=== PATIENT | female | born 1960 | race Two or more races ===

== ENCOUNTER 2016-08-16 19:48 | Inpatient (IN) | payer OTHER ==
[2016-08-16] MEDS ORDERED: LACTATED RINGERS 1,000 ML ONE (21:06)
[2016-08-16] MEDS ORDERED: MORPHINE SULFATE 4 MG/ML SYRINGE ONE (21:07)
[2016-08-16 21:53] LABS: ABSOLUTE NEUTROPHIL COUNT 8.5 K/mm3 (1.8-7.7); BASO % 0.4 % (0.2-1.0); EOS % 0.4 % (0.9-2.9); HEMATOCRIT 41.6 % (37.0-47.0); HEMOGLOBIN 13.5 gm/l (12.0-16.0); IMM NEUT% 0.4 % (0-1); LYMPH # 1.3 (1.0-4.8); MEAN CELL VOLUME 88.1 fl (81.0-99.0); MEAN CORPUSCULAR HEMOGLOBIN 28.6 pg (27.0-31.0); MEAN CORPUSCULAR HGB CONC 32.5 g/dl (33.0-37.0); MEAN PLATELET VOLUME 10.5 fl (7.4-10.4); NEUT % 77.8 % (43-75); PLATELET COUNT 271 K/mm3 (130-400); RED CELL DISTRIBUTION WIDTH 11.9 % (11.5-14.5)
[2016-08-16 22:11] LABS: CALCIUM 9.8 mg/dL (8.6-10.3)
[2016-08-16 23:04] VITALS: BMI 22.4
[2016-08-16] MEDS ORDERED: ONDANSETRON 4 MG/2ML 2 ML VIAL IV PRN (23:21)
[2016-08-16] MEDS ORDERED: MENTHOL/CETYLPYRD 1 EACH LOZENGE PO PRN (23:22)
[2016-08-16] MEDS ORDERED: BISACODYL 10 MG SUP PR PRN (23:22)
[2016-08-16] MEDS ORDERED: SODIUM CHLORIDE 0.9% 100 ML IV PRN (23:22)
[2016-08-16] MEDS ORDERED: BLISTEX LIPSTICK 1 EACH TP PRN (23:22)
[2016-08-16] MEDS: HYDROMORPHONE HCL 1 MG/ML SYRINGE IV PRN (23:32)
[2016-08-17] MEDS ORDERED: PUMP TUBING ONE (00:26)
[2016-08-17] MEDS: SODIUM CHLORIDE 0.9% 1,000 ML IV SCH ×2 (00:32→15:51)
[2016-08-17] MEDS: HYDROMORPHONE HCL 1 MG/ML SYRINGE IV PRN (00:35)
[2016-08-17 01:10] LABS: URINE BILIRUBIN NEGATIVE (NEGATIVE); URINE BLOOD NEGATIVE (NEGATIVE); URINE GLUCOSE (UA) NEGATIVE (NEGATIVE); URINE LEUKOCYTE ESTERASE 2+ (NEGATIVE); URINE NITRITE NEGATIVE (NEGATIVE); URINE PROTEIN NEGATIVE (NEGATIVE); URINE UROBILINOGEN NORMAL (0-1 mg/dl)
[2016-08-17 01:15] LABS: URINE APPEARANCE HAZY; URINE COLOR STRAW
[2016-08-17 01:16] LABS: URINE BACTERIA 3+; URINE EPITHELIAL CELLS MANY /hpf; URINE WBC >100 /hpf
[2016-08-17 06:10] LABS: HEMATOCRIT 35.7 % (37.0-47.0); HEMOGLOBIN 11.4 gm/l (12.0-16.0); MEAN CELL VOLUME 90.2 fl (81.0-99.0); MEAN CORPUSCULAR HEMOGLOBIN 28.8 pg (27.0-31.0); MEAN CORPUSCULAR HGB CONC 31.9 g/dl (33.0-37.0); RED CELL DISTRIBUTION WIDTH 12.1 % (11.5-14.5)
[2016-08-17 06:29] LABS: ALB/GLOB RATIO 1.1 (>1.0); ALBUMIN 3.3 gm/dL (3.5-5.7)
--- NOTE | 2016-08-17 07:42 | HP ---
Jeremy Arzate ADMIT DATE: 08/16/2016 CHIEF COMPLAINT: Hip pain. HISTORY OF PRESENT ILLNESS: Jeremy is a 56-year-old Greek speaking woman. She lives at home with her two sons and [id number]. She fell about 5 days ago while up walking around at night. Her family heard her fall and found her on the ground. She was conscious. She had not injured herself other than her hip. She refused to come to the hospital and so for the last few days they have been literally caring her around whenever she needs to get anywhere as she has been unable to ambulate. They finally brought her to the emergency room this evening. Work up revealed a right femoral neck hip fracture with a negative workup otherwise. She was admitted to the hospitalist service with plans for orthopedic consult. REVIEW OF SYSTEMS: No headache. No visual symptoms. No difficulty swallowing. No chest pain or shortness of breath. No heart palpitations. No nausea, vomiting, or diarrhea. She has had some constipation lately, but no other concerns. No fevers, no chills. PAST MEDICAL HISTORY: 1. Cerebrovascular accident 01/27, she was treated at [facility]. She was left with difficulties with speech, right sided hemiparesis. She was able to ambulate with a walker. She does not have difficulty with eating or drinking. 2. Hypertension. 3. Hyperlipidemia. PAST SURGICAL HISTORY: 1. "Women part" surgery greater than 10 years ago when she was in [place]. It sounds like she may have had an ovarian cyst removed. 2. L4-L5 fusion performed just last month 06/17/2016 at [facility]. ALLERGIES: No known drug allergies. CURRENT MEDICATIONS: 1. Lisinopril 10 mg by mouth daily. 2. Fenofibrate unknown dose. 3. Oxycodone as needed over the last couple of days, this is a left over prescription from her back surgery, she does not usually take it. 4. Cyclobenzaprine 10 mg by mouth three times daily as needed, again left over from her back surgery, just been using it in the last couple of days. SOCIAL HISTORY: She lives with her son and his , a second younger son, as well as grandchildren. No alcohol, tobacco, or drug use. She just moved here from [facility] to live with her family back in 2008. FAMILY HISTORY: Noncontributory. OBJECTIVE: VITAL SIGNS: Stable. She is afebrile. GENERAL: This is a well-developed, well-nourished female. She is alert and calm. She does have an obvious right sided facial droop and slurred speech. She is in no distress otherwise. HEENT: Benign. Tympanic membranes clear. Oropharynx moist. NECK: Supple. LUNGS: Clear. HEART: Regular. ABDOMEN: Soft. EXTREMITIES: Right lower extremity shortened and externally rotated. She is neurovascularly intact otherwise. There is no edema. LABORATORY: CBC with a white count of 10.9, hemoglobin 13.5, hematocrit 31.6, platelets 271. Chemistry panel, sodium 133, potassium 4.0, chloride 98, carbon dioxide 27, BUN 15, creatinine 0.8, glucose of 122. DIAGNOSTICS: EKG shows normal sinus rhythm. No acute ST or T-wave abnormalities. Chest x-ray is rotated, but it appears to be normal, I am awaiting official radiology read. Pelvis x-ray's do show femoral neck fracture on the right. ASSESSMENT: 1. Right femoral neck fracture secondary to ground level fall. 2. Late effect of a cerebrovascular accident including dysarthria and right sided hemiparesis. 3. Hypertension. 4. Hyperlipidemia. PLAN: She is admitted to the floor. We will treat her supportive tonight with intravenous fluid hydration and intravenous medications for pain and nausea as needed. In the morning we will get orthopedic consult. I am going to keep her nothing by mouth after midnight as I anticipate she may be able to go to surgery tomorrow. Deep venous thrombosis prophylaxis is not indicated given potential for surgery in the morning though we will initiate in the postoperative period. Further care as dictated by clinical course. JOB: [id number]
--- NOTE | 2016-08-17 08:32 | RAD ---
RIGHT HIP AND AP PELVIS SERIES HISTORY: Status post fall with right hip pain. Frontal view of the pelvis with frontal and frog-leg lateral views of the right hip. PELVIC RING: Grossly intact. HIP ALIGNMENT: Grossly unremarkable. HIP JOINT SPACES: Preserved. FRACTURE: Subcapital fracture of the right proximal femur with notable varus angulation and elevation of the humeral shaft. POSTSURGICAL CHANGE: Evidence of prior L4-5 fusion. IMPRESSION: Subcapital fracture of the right proximal femur with moderate varus angulation.
--- NOTE | 2016-08-17 08:33 | RAD ---
PORTABLE CHEST RADIOGRAPH HISTORY: Right hip fracture. Frontal portable chest radiograph dated 08/16/2016. COMPARISON: None. FINDINGS: LUNG VOLUMES: Diminished. FOCAL AIRSPACE OPACITY: No gross airspace consolidation. PLEURAL EFFUSION: None. CARDIOMEDIASTINAL SILHOUETTE: Nonenlarged. Upper mediastinal width may be exaggerated by low lung volumes. PNEUMOTHORAX: None identified. OSSEOUS STRUCTURES: No grossly destructive lesions. IMPRESSION: No acute cardiopulmonary process noted. Hypoventilatory study.
--- NOTE | 2016-08-17 08:37 | CT ---
HEAD CT WITHOUT CONTRAST HISTORY: Status post fall. No intravenous contrast administered. Contiguous axial images acquired from skull base to vertex. COMPARISON:None. BRAIN VOLUME: Mild diffuse volume loss. More focal gliosis and malacic change of the frontal lobes suggesting prior infarcts of the frontal lobes and thalami. VENTRICULAR SIZE:No gross ventriculomegaly. FOCAL MASS EFFECT:None. ACUTE INTRACRANIAL HEMORRHAGE:None. CALVARIUM:Grossly intact. VISIBLE PARANASAL SINUSES AND MASTOID AIR CELLS:Grossly clear. ORBITS: Evidence of prior to surgery. IMPRESSION: No gross mass effect, depressed calvarial fracture, or acute intracranial hemorrhage. Evidence of multiple remote infarcts. Preliminary report relayed to the Emergency Medicine medical service by Dr. Hutton on 08/16/2016 at 2146 hours.
--- NOTE | 2016-08-17 08:39 | RAD ---
RIGHT FEMUR 2 VIEWS HISTORY: Status post fall. COMPARISONS: None. TECHNIQUE: Frontal and crosstable lateral views of the right femur. Lateral view limited by obliquity. ALIGNMENT: Grossly unremarkable. FRACTURE: Subcapital fracture of the right femur with varus angulation. RIGHT KNEE: Minor degenerative osteophyte formation. SOFT TISSUES: Grossly unremarkable. RADIOOPAQUE FOREIGN BODY: None. IMPRESSION: Subcapital fracture of the right proximal femur, please refer to dedicated hip series.
--- NOTE | 2016-08-17 08:43 | CT ---
CERVICAL SPINE CT WITHOUT CONTRAST HISTORY: Status post fall with neck pain. No intravenous contrast administered contiguous axial images acquired from the posterior fossa to the T3 level. FINDINGS ALIGNMENT: Subtle anterolisthesis at C3-4. COMPRESSION DEFORMITY: None. DISC SPACES: Early degrees of narrowing at C3-4-5 levels. FRACTURE: No displaced fracture. DEGENERATIVE CHANGE: Prominent asymmetric degeneration of facet joints at the left C2-3 and C3-4 levels, findings suggesting prominent subchondral cyst at left-sided posterior elements of C3. Small central disc protrusions at the C4 and C4-5 levels.. FORAMINAL NARROWING: Moderate left foraminal narrowing at the C3-4 level. PARASPINAL SOFT TISSUES: Airway patent. No gross mass effect. LUNG APICES: Grossly unremarkable within field of view. SKULL BASE: Incidental note of high riding left jugular bulb. IMPRESSION: No displaced cervical spine fracture. Focal degeneration of left-sided facet joints at C2-3 and C3-4 level. Preliminary report relayed to the Emergency Medicine medical service by Dr. Hutton on 08/16/2016 at 2146 hours.
[2016-08-17] MEDS ORDERED: SODIUM CHLORIDE 0.9% 500 ML IV SCH (09:15)
[2016-08-17] MEDS ORDERED: POVIDONE-IODINE 5% OPHTH SOLN 600 GTTS/BOT SOLN.DROP ONE (12:45)
[2016-08-17] MEDS ORDERED: LACTATED RINGERS 1,000 ML ONE (12:45)
[2016-08-17] MEDS ORDERED: PROPOFOL 20 ML IV ONE (12:59)
--- NOTE | 2016-08-17 13:51 | PDOC43 ---
- Subjective Chief Complaint: Hip fx Did OK overnight. No new c/o's. Subjective: Reports Pain Tolerable, Denies Bowel Movement, Denies Shortness of Breath, Denies Cough, Denies Chest Pain, Denies Abdominal Pain, Denies Nausea, Denies Vomiting, Denies Fever, Denies Chills - Objective Vital Signs Temperature 97.9 F 08/17/16 07:42 Pulse Rate 87 08/17/16 07:42 Respiratory Rate 16 08/17/16 07:42 Blood Pressure 83/53 08/17/16 07:42 O2 Saturation by Pulse Oximetry 97 08/17/16 07:42 Oxygen Delivery Method Nasal Cannula Oxygen Flow Rate 2 Intake and Output 08/16/16 08/17/16 08/18/16 06:59 06:59 06:59 Intake Total 1549 Output Total 675 350 Balance 874 -350 General: Alert, Cooperative, No Acute Distress HEENT: Atraumatic Lungs: Clear to Auscultation Bilaterally Cardiovascular: Regular Rate and Rhythm Abdomen: Soft, Normal Bowel Sounds, Non-Distended, No Tenderness Extremities: Normal Cap Refill, Normal Pulses, No Edema Laboratory 08/17/16 05:30 08/17/16 05:30 Current Medications: Current meds reviewed in EMR. - Problems: Assessment/Plan (1) Hip fracture Qualifiers: Fracture type: closed Laterality: right Status: AcuteAssessment/Plan : R Hip fx due to GLF 4 days FALL INTERN. Plan to OR this afternoon. (2) Late effects of CVA (cerebrovascular accident) Status: ChronicAssessment/Plan: With R hemiparesis and dysarthria. Ambulates with walker as baseline. Will complicate surgical recovery. (3) HTN (hypertension) Qualifiers: Hypertension type: essential hypertension Qualifier Code: (I10) Essential (primary) hypertension Status: ChronicAssessment/Plan: Stable. Resume usual meds post-op. (4) Hyperlipidemia Qualifiers: Hyperlipidemia type: unspecified Qualifier Code: (E78.5) Hyperlipidemia , unspecified Status: ChronicAssessment/Plan: Stable. Need to clarify usual dose of fenofibrate. VTE Prophylaxis: Initiate post-op as per ortho. Disposition: Unknown.
--- NOTE | 2016-08-17 14:48 | HP ---
PRIMO ANDREW : 1960 [id number] DATE OF ADMISSION: 08/17/16 CHIEF COMPLAINT: Right hip pain/deformity. HISTORY OF PRESENT ILLNESS: This is a 56-year-old, Cuban speaking only female who has a history of recent cerebral vascular accident/stroke rendering her right hemiparetic, who suffered a ground level fall in her home approximately 4 days ago. She did not seek medical care at that time however, over the course of a few days her family members recognized that she had increasing amounts of pain and inability to mobilize. She was taken to a local Urgent Care in [place] where she was thought to have had spasms as a result of her fall. She did not have radiographs at that time. She was sent home with symptomatic management only. Within days continued pain and lack of improvement, persistent issues, and patient's family decided to bring the patient to the local ED here in [place]. The patient was evaluated in the ED by the ED providers as well as our internal medicine doctors after radiographs demonstrated a right femoral neck fracture. Today she again due to our relative inability to communicate, we used her son who is fluent in both Cuban and French, as a central stores attendant. We communicated about her issues. Her major complaints are right hip pain. Pain is described as 6/10. The pain is worse with any manipulation and/or attempts at movement. PAST MEDICAL HISTORY: 1. She had a cerebral vascular accident in January of last year, treated at [facility]. The sequela includes right sided hemiparesis. 2. Hypertension 3. Hyperlipidemia ALLERGIES: NKDA MEDICATIONS: Lisinopril, 10mg, by mouth daily. Oxycodone Cyclobenzaprine, 10mg, by mouth 3x daily as needed for spasms. This is related to her back surgery. PAST SURGICAL HISTORY: 4-5 posterior spinal fusion in June of 2013 at [facility]. SOCIAL HISTORY: She lives in [place] with her son and his . She does not use alcohol, tobacco or any other elicit drugs. She is a household ambulator with the use of a walking aid, namely a front wheeled walker. REVIEW OF SYSTEMS: A 12-point ROS was obtained and negative except for as HPI above. PHYSICAL EXAMINATION: Focal physical exam of the lower extremities was completed. The right lower extremity is held in a hip flexed position externally rotated. She has pain with log roll. There are no open wounds or abrasions. She does have a mild amount of ecchymosis and a moderate amount of swelling on the right hip area. There is small bruised ecchymotic area. Sensation was intact to light touch of bilateral lower extremities and there are palpable dorsalis pedis pulses bilaterally. RADIOGRAPHS: AP pelvis and 2 views of the right hip were obtained as well as 2 views of the right femur. These views demonstrate an essentially transcervical to basicervical femoral neck fracture. The right femur is in extreme external rotation and flexion. There appears to be only mild comminution of this fracture. It is well above the lesser trochanter. Greater trochanter is intact. No evidence of fracture. There is no evidence of acetabular rami or SI joint or sacral fractures. IMPRESSION: This is a 56-year-old Cuban female with a history of stroke with right sided hemiparesis who presents with right femoral neck fracture. PLAN: I have had a lengthy discussion with the patient and her family using her son as a central stores attendant. She and her family both understand the treatment options including nonoperative treatment that would result in decreased ambulatory ability and very likely persistent pain issues vs. right hip hemiarthroplasty. We discussed risks and benefits of the surgery including bleeding, infection, damage to surrounding structures, dislocation and leg length discrepancy. We spent most of this time discussing the more likely complications of dislocation and leg length discrepancy in this patient. I discussed with the patient that I would error on the side of lengthening extremity to add to increased stability in the setting of a hemiarthroplasty for patient with history of hemiparesis on the ipsilateral extremity. From a surgical standpoint a direct lateral approach to the hip would be ideal as it would reduce her dislocation rate however, potentially lead to increasing limp and lurch. However, given her history of right hemiparesis, I don't think this will be her major issue. This was all discussed with the patient. Family and patient decided to proceed with right hip hemiarthroplasty and this will be done as surgery schedule dictates. JA: melvin CC: [facility]
[2016-08-17] MEDS ORDERED: KETAMINE HCL UD SYRINGE 100 MG/2 ML IV ONE (15:23)
[2016-08-17] MEDS ORDERED: MIDAZOLAM HCL 1 MG/ML 2ML VIAL ONE ×2 (15:23→16:07)
[2016-08-17] MEDS ORDERED: SPINAL PROCEDURAL TRAY 1 EACH ONE (15:24)
[2016-08-17] MEDS ORDERED: BUPIVACAINE 0.5% (PRES FREE) 30 ML VIAL ONE (15:40)
[2016-08-17] MEDS ORDERED: FENTANYL 250 MCG/5 ML AMP ONE (16:17)
[2016-08-17] MEDS ORDERED: PHENYLEPHRINE 10 MG/1 ML (1%) VIAL ONE (16:32)
[2016-08-17] MEDS ORDERED: CEFAZOLIN SODIUM 1,000 MG VIAL ONE (16:36)
[2016-08-17] MEDS ORDERED: ROCURONIUM BROMIDE 10 MG/ML DOSE IV ONE (16:37)
[2016-08-17] MEDS ORDERED: DEXAMETHASONE SOD PHOS 4 MG/1 ML VIAL ONE (16:38)
[2016-08-17] MEDS ORDERED: ONDANSETRON 4 MG/2ML 2 ML VIAL ONE (16:38)
[2016-08-17] MEDS ORDERED: DIPHENHYDRAMINE HCL 50 MG/1 ML VIAL ONE (16:38)
[2016-08-17] MEDS ORDERED: HYDROMORPHONE HCL 2 MG/ML SYRINGE ONE (16:47)
[2016-08-17] MEDS ORDERED: ONDANSETRON 4 MG/2ML 2 ML VIAL IV PRN ×2 (16:59→19:49)
[2016-08-17] MEDS ORDERED: HYDROMORPHONE HCL 1 MG/ML SYRINGE IV PRN (16:59)
[2016-08-17] MEDS ORDERED: PROMETHAZINE HCL 25 MG/ML VIAL IM PRN (16:59)
[2016-08-17] MEDS ORDERED: FENTANYL 100 MCG/2 ML VIAL IV PRN (16:59)
[2016-08-17] MEDS ORDERED: ATROPINE SULFATE 0.4 MG/1 ML VIAL IV PRN (16:59)
[2016-08-17] MEDS ORDERED: NALOXONE HCL 0.4 MG/ML VIAL IV PRN (16:59)
[2016-08-17] MEDS ORDERED: LACTATED RINGERS 1,000 ML IV SCH (17:00)
[2016-08-17] MEDS ORDERED: POLYMYXIN B TP ONE (17:58)
[2016-08-17] MEDS ORDERED: BACITRA TP ONE (17:58)
[2016-08-17] MEDS ORDERED: NEOMY SULF TP ONE (17:58)
[2016-08-17] MEDS ORDERED: NEOSTIGMINE METHYLSULFATE 1 MG/ML DOSE ONE (18:24)
[2016-08-17] MEDS ORDERED: GLYCOPYRROLATE 0.2 MG/ML 1ML VIAL ONE (18:24)
[2016-08-17] MEDS ORDERED: EPHEDRINE SULFATE UD SYR 25 MG 25 MG/5 ML SYRINGE IV ONE (18:31)
[2016-08-17] MEDS ORDERED: HYDROMORPHONE HCL 0.5 MG/0.5 ML SYRINGE IV PRN (19:49)
[2016-08-17] MEDS ORDERED: CALCIUM CARBONATE 500 MG TAB.CHEW PO PRN (19:49)
--- NOTE | 2016-08-17 20:26 | RAD ---
PELVIS HISTORY: Postop right OLINDA COMPARISONS: Plain films 08/17/2016 FINDINGS: Single AP view of the pelvis demonstrates right hip arthroplasty changes. Hardware is intact without signs of failure or loosening given the single projection. No fracture or dislocation. Hardware from L4-5 pedicle screw and rosa isela fixation is not fully visualized. Nonspecific bowel gas pattern overlays the osseous structures. Soft tissue gas is noted on the right. IMPRESSION: Satisfactory postoperative exam.
[2016-08-17] MEDS: D5 1/2NS with 20 mEq KCL 1,000 ML IV SCH (20:34)
[2016-08-18] MEDS: CEFAZOLIN SODIUM 1 GRAM PREMIX 1 G in Premix (D5W) 50 ml 1 EACH IV SCH ×2 (01:38→08:52)
[2016-08-18] MEDS: DOCUSATE SODIUM 100 MG CAPSULE PO SCH ×3 (01:39→21:38)
[2016-08-18] MEDS: ASCORBIC ACID 500 MG TABLET PO SCH ×3 (01:39→21:38)
[2016-08-18] MEDS: ACETAMINOPHEN 500 MG TABLET PO SCH ×6 (01:40→21:38)
[2016-08-18] MEDS ORDERED: TRAMADOL HCL 50 MG TABLET PO PRN (02:00)
[2016-08-18] MEDS: D5 1/2NS with 20 mEq KCL 1,000 ML IV SCH ×3 (04:37→21:38)
--- NOTE | 2016-08-18 07:58 | PCMBPN ---
Brief Post Op Note: Date of Procedure: 08/18/16 Start Time: 3:30pm Preoperative Diagnosis: 1. Right hip fracture Postoperative Diagnosis: 1. Same Procedure:R hip hemiarthroplasty Surgeon: Rocael Mckinney MD Assist: Kaycee Anesthesia: General Findings: Femoral neck fracture - subacute. Condition: Good Complications: None IV Fluids: ~1000 mLs of LR Urine Output: See anesthesia record for details. Estimated Blood Loss: 300 mLs Tourniquet Time: N/A Specimens: N/A Implants: Depuy [place] Basic cemented stem - Sz 2; 44mm endopolar head with -3 head/neck length. Drains: N/A
--- NOTE | 2016-08-18 08:49 | PDOC43 ---
- Subjective Findings: Communication limited due to language barrier. Appears to have some right hip related pain. Tachycardic (p = 102) Minimal PO intake. Foely remains. - Objective Vital Signs Temperature 98.6 F 08/18/16 07:55 Pulse Rate 102 08/18/16 07:55 Respiratory Rate 16 08/18/16 07:55 Blood Pressure 106/56 08/18/16 07:55 O2 Saturation by Pulse Oximetry 94 08/18/16 07:55 Oxygen Delivery Method Nasal Cannula Oxygen Flow Rate 2 Laboratory 08/17/16 05:30 08/17/16 05:30 Active Medication Orders Category Date Time Status Acetaminophen [Tylenol] Med 08/17/16 22:00 Active 1,000 mg PO Q6H Ascorbic Acid [Vitamin C] Med 08/17/16 21:00 Active 500 mg PO BID Aspirin (Enteric Coated) [Ecotrin] Med 08/18/16 09:00 Active 325 mg PO DAILY Bisacodyl [Dulcolax] Med 08/20/16 18:49 Active 10 mg MT DAILY PRN Calcium Carbonate [Tums] Med 08/17/16 19:49 Active 1,000 - 2,000 mg PO Q2H PRN Cefazolin Sodium 1 Gram Premix [Ancef 1 Gram Premix] 1 Med 08/18/16 01:30 Active g Premix (D5W) 50 ml 1 each IV Q8H D5 1/2NS with 20 mEq KCL [D51/2NS with 20 mEq KCL] 1, Med 08/17/16 19:49 Active 000 ml IV 125 mls/hr Docusate Sodium [Colace] Med 08/17/16 21:00 Active 100 mg PO BID Hydromorphone HCl [Dilaudid] Med 08/17/16 19:49 Active 0.5 mg IV Q1H PRN Magnesium Hydroxide [Milk of Magnesia] Med 08/18/16 18:49 Active 30 ml PO DAILY PRN Multivitamins [One-A-Day] Med 08/18/16 09:00 Active 1 tab PO DAILY Ondansetron 4 mg/2ml Vial [Zofran] Med 08/17/16 19:49 Active 4 - 6 mg IV Q6H PRN Oxycodone HCl [Roxicodone] Med 08/17/16 19:49 Active 5 - 10 mg PO Q4H PRN Sodium Chloride 0.9% Flush [Normal Saline 10ml Flush] Med 08/17/16 19:49 Active 10 - 50 ml IV PRN PRN Tramadol HCl [Ultram] Med 08/18/16 02:00 Active 50 mg PO Q6H PRN Intake and Output 08/16/16 08/17/16 08/18/16 23:59 23:59 23:59 Intake Total 4450 1140 Output Total 1835 1250 Balance 2615 -110 General: Afebrile Neurological: Alert Peripheral Pulses: Right Posterior Tibialis: 2+, Right Dorsalis Pedis: 2+ - Right Lower Extremity Incision: Dressing Clean/Dry/Intact Motor: Extensor Hallucis Longus: 3/5 (baseline), Tibialis Anterior: 3/5 ( baseline), Gastrocnemius: 3/5 (baseline), Peroneals: 3/5 (baseline), Quadriceps : 3/5 (baseline) Gross Sensation to Light Touch: Present: Deep Peroneal Nerve, Superficial Peroneal Nerve Capillary Refill: < 3 Seconds - Problems (1) Hip fracture Qualifiers: Encounter type: initial encounter Fracture type: closed Laterality : right Qualifier Code: (S72.001A) Fracture of unspecified part of neck of right femur, initial encounter for closed fracture Status: AcuteAssessment/ Plan: 57yo F POD#1 s/p Right hip hemiarthoplasty - Initiate PT today; WBAT; Maintain STRICT posterior hip precautions. - Maintain adequate analgesia; Tylenol, Tramadol, Oxycodone, IV Dilaudid for breakthrough pain. Ok to have Toradol from ortho persective if necessary. - D/C guerrero as able - Encourage PO intake - VTE Ppx: On ASA at this point. Pending ambulatory capability would consider Lovenox 24hrs post-op if no able to mobilize well. SCDs should remain in place while in bed. - CBC/BMP pending this morning. Will follow up labs. - Appreciate Hospitalist assistance with this patient. - Dispo: Will likely require SNF; Anticiapte 2-3 days inpatient stay; potentially through the weekend pending PT eval.
[2016-08-18] MEDS: OXYCODONE HCL 5 MG TABLET PO PRN ×4 (08:54→21:41)
[2016-08-18] MEDS: MULTIVITAMINS 1 TAB TABLET PO SCH (08:54)
[2016-08-18] MEDS: ASPIRIN (ENTERIC COATED) 325 MG TABLET.EC PO SCH (08:54)
--- NOTE | 2016-08-18 10:13 | OP ---
Jeremy ARZATE : 1960 [id number] DATE OF PROCEDURE: August 17, 2016 PREOPERATIVE DIAGNOSIS: Right femoral neck fracture. POSTOPERATIVE DIAGNOSIS: Right femoral neck fracture. PROCEDURE: RIGHT HIP CEMENTED HEMIARTHROPLASTY. SURGEON: Rocael Mckinney M.D. ESTIMATED BLOOD LOSS: 300 mL IV FLUIDS: Approximately 1 L of Lactated Ringers. Please see anesthesia record for complete details of ins and outs. SPECIMENS: None. COMPLICATIONS: None. TOURNIQUET TIME: Not applicable. ANESTHESIA: General. Please see anesthesia record for complete details of their portion of the procedure. FINDINGS: Basicervical femoral neck fracture. IMPLANTS: 1. DePuy [place] basic cemented stem size 2. 2. 44 mm endopolar head with a -3 head neck length. 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 The evaluation in the emergency department with the use of radiographs demonstrated a right femoral neck fracture. Orthopedics was consulted regarding care management of her fracture. She was indicated for a right hip hemiarthroplasty. A formal PARQ session was held with the family and they understood the risks and benefits of the procedure and elected to proceed. DETAILS OF THE PROCEDURE: Ms. Jeremy Arzate and her family were met by the orthopedic team prior to start of the case. Again, a formal PARQ session was held. The surgical consent was signed. The operative site was marked. The patient was then transferred to the operating room. Upon arrival in the operating room the patient was placed on the operating room table in supine position. Anesthesia was induced and the airway was protected via the general endotracheal intubation. Please see anesthesia record for complete details of their portion of the procedure. Once the patient was appropriately anesthetized the patient was repositioned on the operating room table, was placed in the lateral decubitus position and was held in place with the pegboard positioner. All bony prominences were appropriately padded. At this point the patient was prepped and draped in the standard sterile fashion. Prior to the start of the case a formal time out was held reconfirming the patient's identity, the operative site and the surgery to be performed. There were no questions or concerns from the surgical team and/or anesthesia staff and thus it was deemed appropriate to proceed. A standard posterior lateral approach to the hip was employed. The skin was incised longitudinally along the posterior lateral aspect of the thigh. Hemostasis was achieved using Bovie cautery. The gluteal fascia was incised using Bovie cautery. A Charnley hip retractor was then replaced. The hip was then extended and slightly internally rotated allowing for identification and exposure of the short external rotators. The short external rotators were taken down in sequential fashion with identification of the piriformis tendon. Once taken down these were tagged with a #2 Ethibond suture and the short external rotator and hip capsule were tagged together for eventual closure post procedure. Once the short external rotators and the joint capsule were incised the femoral neck fracture was identified. The femur was then retracted anteriorly with use of an anterior Cobra retractor. With the use of a corkscrew and Vick elevator the femoral head was removed from the acetabulum. The sizer demonstrated a size 44 head and a trial head was then placed into the acetabulum and deemed satisfactory in size and stability within the acetabulum. The trial head was removed. The pulvinar was removed from the cotyloid fossa. The anterior retractor was removed and we turned our attention to femoral preparation. Two retractors were placed to protect the remainder of the femoral neck. A reciprocating sagittal saw was used to freshen up the femoral neck cut approximately 1 cm above the lesser trochanter. A box osteotome was utilized to enter the proximal femur followed by an entry reamer. The femoral canal was reamed up to a size 3, followed by sequential broaching up to a size 3 as well. Ultimately the canal was then prepped with irrigation. A cement restrictor was placed at a level 13 mm below the medial calcar. The canal was prepped. The cement was prepared. The canal was filled with a medium viscosity polymethyl methacrylate cement. A centralizer was placed on the size 2 stem that was implanted into the cement mantle. The implant was then placed into the mantle in approximately 15 to 20 degrees of femoral anteversion. This was held until the cement had cured. Once the cement had cured and the femoral stem was appropriately positioned the trial 44 mm head -3 offset was placed. This demonstrated appropriate leg lengths but centrally equal clinically while in the lateral position and there was great stability with hip flexion up to 90 degrees and 60 degrees of internal rotation still without dislocation, thus this was deemed very stable. There was no impingement about the greater trochanter and acetabulum and the hip was then dislocated a second time. The 44 mm head with -3 head neck length was then implanted. The hip was reduced. A Betadine solution was used as a 3 minute soak, and then ultimately irrigated copiously with a saline solution and irrigant. A 2 mm drill was used to place drill holes through the proximal femur and greater trochanteric region. The #2 Ethibond was then used and brought through the drill holes using a suture passer and the short external rotators were then juxtaposed and returned to their position on the greater trochanter. This was then over-sewed with a #1 Vicryl suture. The gluteal fascia was then closed with a #1 Vicryl suture in an interrupted fashion. A deep dermal suture was utilized in this was a #2 Vicryl and then the skin was then closed with a #3-0 StrataFix in a subcuticular fashion. At the end of the case all counts were correct. There were no concerns or issues from the operating room staff, anesthesia staff and/or surgeons. The patient's anesthesia was reversed and she was taken to the postanesthesia care unit for further observation and monitoring. She was ultimately transferred to the hospital [facility] for further convalescence. Job [id number] CC: [facility]
[2016-08-18] MEDS: CEFTRIAXONE 1 GRAM DUPLEX 1 G in Premix (D5W) 50 ml 1 EACH IV SCH (11:34)
--- NOTE | 2016-08-18 16:28 | PDOC43 ---
- Subjective Chief Complaint: Hip fx Patient reports some hip pain, but it is better than when she came in. Did get some pain medication, tolerating this fine. Would like to sit up. No respiratory , no GI c/o. Babcock still in. - Objective Vital Signs Temperature 98.6 F 08/18/16 11:29 Pulse Rate 108 08/18/16 11:29 Respiratory Rate 16 08/18/16 11:29 Blood Pressure 119/64 08/18/16 11:30 O2 Saturation by Pulse Oximetry 97 08/18/16 11:29 Oxygen Delivery Method Nasal Cannula Oxygen Flow Rate 2 Vital Signs Last 12 Hours Temp Pulse Resp BP Pulse Ox 08/18/16 11:30 119/64 08/18/16 11:29 98.6 F 108 16 121/74 97 08/18/16 11:00 119/64 08/18/16 07:55 98.6 F 102 16 106/56 94 Intake and Output 08/16/16 08/17/16 08/18/16 23:59 23:59 23:59 Intake Total 4450 1140 Output Total 1835 1250 Balance 2615 -110 General: Alert, Cooperative, No Acute Distress HEENT: Atraumatic Lungs: Clear to Auscultation Bilaterally, Normal Air Movement, Diminished at Bases Cardiovascular: Regular Rate and Rhythm Abdomen: Soft, Normal Bowel Sounds, Non-Distended Extremities: Tenderness (tender along R thigh. Dressing C/D/i. Ankles without edema.), No Edema Skin: Normal Color Neurological: Other (speech soft. Son translates.) Psych/Mental Status: Other (alert, pleasant.) Laboratory 08/17/16 05:30 08/17/16 05:30 Current Medications: Current meds reviewed in EMR. Active Medications Acetaminophen (Tylenol) 1,000 mg PO Q6H [facility] Last Admin: 08/18/16 09:26 Dose: Not Given Ascorbic Acid (Vitamin C) 500 mg PO BID [facility] Last Admin: 08/18/16 08:53 Dose: 500 mg Aspirin (Ecotrin) 325 mg PO DAILY [facility] Last Admin: 08/18/16 08:54 Dose: 325 mg Bisacodyl (Dulcolax) 10 mg IN DAILY PRN PRN Reason: If no BM by POD#3 Calcium Carbonate/Glycine (Tums) 1,000 - 2,000 mg PO Q2H PRN PRN Reason: Heartburn/Indigestion Docusate Sodium (Colace) 100 mg PO BID [facility] Last Admin: 08/18/16 08:54 Dose: 100 mg Hydromorphone HCl (Dilaudid) 0.5 mg IV Q1H PRN PRN Reason: Severe/Breakthrough Pain Last Admin: 08/18/16 04:38 Dose: 0.5 mg Potassium Chloride/Dextrose/Sod Cl (D51/2ns With 20 Meq Kcl) 1,000 mls @ 125 mls/hr IV .Q8H [facility] Last Admin: 08/18/16 04:37 Dose: 125 mls/hr Ceftriaxone Sodium/Dextrose 1 (g/ Premix (D5W) 50 ml) 50 mls @ 100 mls/hr IV Q24H [facility] Last Admin: 08/18/16 11:34 Dose: 100 mls/hr Magnesium Hydroxide (Milk Of Magnesia) 30 ml PO DAILY PRN PRN Reason: If no BM by evening of POD#1 Multivitamins (One-A-Day) 1 tab PO DAILY [facility] Last Admin: 08/18/16 08:54 Dose: 1 tab Ondansetron HCl (Zofran) 4 - 6 mg IV Q6H PRN PRN Reason: Nausea/Vomiting Oxycodone HCl (Roxicodone) 5 - 10 mg PO Q4H PRN PRN Reason: Pain (Moderate) Last Admin: 08/18/16 12:07 Dose: 5 mg Sodium Chloride (Normal Saline 10ml Flush) 10 - 50 ml IV PRN PRN PRN Reason: IV Flush Tramadol HCl (Ultram) 50 mg PO Q6H PRN PRN Reason: Pain (Mild) Last Admin: 08/18/16 14:49 Dose: 50 mg - Problems: Assessment/Plan (1) Hip fracture Qualifiers: Encounter type: initial encounter Fracture type: closed Laterality : right Qualifier Code: (S72.001A) Fracture of unspecified part of neck of right femur, initial encounter for closed fracture Status: AcuteAssessment/ Plan: 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 Anticipate SNF 08/21 (2) Late effects of CVA (cerebrovascular accident) Status: ChronicAssessment/Plan: With R hemiparesis and dysarthria. Ambulates with walker as baseline. Affecting recovery. (3) HTN (hypertension) Qualifiers: Hypertension type: essential hypertension Qualifier Code: (I10) Essential (primary) hypertension Status: ChronicAssessment/Plan: BP on lower side. Resumed usual meds post-op, but with parameters, as BP on low side. (4) Hyperlipidemia Qualifiers: Hyperlipidemia type: unspecified Qualifier Code: (E78.5) Hyperlipidemia , unspecified Status: ChronicAssessment/Plan: Stable. Need to clarify usual dose of fenofibrate. VTE Prophylaxis: Initiate post-op as per ortho, on ASA Disposition: anticipate SNF 08/21; appreciate therapy, nursing care.
--- NOTE | 2016-08-18 17:05 | PDOC36 ---
Provider Note Note: Dx: R hip fracture s/p R hip edgar arthroplasty Ms. Arzate's nurse called to inform that the patient's son was at bedside. There has been limited communication with the patient given the language barrier as she is [place] speaking only. Our best communication tends to be with the son acting as a law instructor. such, I came to bedside to discuss her care. The patient reports improving pain control. She reports that she was able to stand at bedside with PT today. We discussed activity level and WB status. I reinforced the necessity/importance of guarding posterior hip precautions and what that entails. They both acknowledged and voiced understanding. We will continue to reinforce this through our therapist. The son reports that he will be present tomorrow morning for her therapy session. Plan: - Continue inpatient care - Continue PT; WBAT; Posterior hip precautions. - Maintain adequate analgesia - ASA for VTE Ppx at this time. - D/C guerrero once mobilizing or tmrw morning at latest.
[2016-08-19] MEDS: ACETAMINOPHEN 500 MG TABLET PO SCH ×4 (04:06→21:14)
[2016-08-19] MEDS: OXYCODONE HCL 5 MG TABLET PO PRN ×4 (05:30→21:14)
[2016-08-19] MEDS: D5 1/2NS with 20 mEq KCL 1,000 ML IV SCH ×3 (05:32→21:15)
[2016-08-19 06:44] LABS: ABSOLUTE NEUTROPHIL COUNT 4.8 K/mm3 (1.8-7.7); BASO % 0.3 % (0.2-1.0); EOS # 0.1 (0.0-0.5); EOS % 1.9 % (0.9-2.9); HEMOGLOBIN 9.6 gm/l (12.0-16.0); IMM NEUT% 0.1 % (0-1); LYMPH # 1.3 (1.0-4.8); MEAN CORPUSCULAR HEMOGLOBIN 28.5 pg (27.0-31.0); MEAN PLATELET VOLUME 10.7 fl (7.4-10.4); MONO # 0.7 (0.0-0.8); MONO % 9.8 % (4-12); NEUT % 68.9 % (43-75); PLATELET COUNT 264 K/mm3 (130-400); RED CELL DISTRIBUTION WIDTH 11.9 % (11.5-14.5)
[2016-08-19 07:01] LABS: CALCIUM 8.4 mg/dL (8.6-10.3)
--- NOTE | 2016-08-19 08:37 | PDOC43 ---
- Subjective Findings: POD#2 s/p R hip hemiarthroplasty - Doing well; No acute events overnight - Improved appearance; She is much more interactive. - Pain is well controlled on current regimen. - (+)Flatus; (-)BM - Tolerating PO intake - Guerrero remains Subjective: Reports Flatus - Objective Vital Signs Temperature 98.4 F 08/19/16 07:00 Pulse Rate 85 08/19/16 07:00 Respiratory Rate 18 08/19/16 08:00 Blood Pressure 110/70 08/19/16 07:00 O2 Saturation by Pulse Oximetry 98 08/19/16 07:00 Oxygen Delivery Method Room Air Oxygen Flow Rate 0 Laboratory 08/19/16 05:32 08/19/16 05:32 08/19/16 05:32 RBC 3.37 L MCHC 32.0 L Estimated GFR 103 H Calcium 8.4 L Active Medication Orders Category Date Time Status Acetaminophen [Tylenol] Med 08/17/16 22:00 Active 1,000 mg PO Q6H Ascorbic Acid [Vitamin C] Med 08/17/16 21:00 Active 500 mg PO BID Aspirin (Enteric Coated) [Ecotrin] Med 08/18/16 09:00 Active 325 mg PO DAILY Bisacodyl [Dulcolax] Med 08/20/16 18:49 Active 10 mg [place] DAILY PRN Calcium Carbonate [Tums] Med 08/17/16 19:49 Active 1,000 - 2,000 mg PO Q2H PRN Ceftriaxone 1 Gram Duplex [Rocephin 1 Gram Premix] 1 g Med 08/18/16 11:00 Active Premix (D5W) 50 ml 1 each IV Q24H D5 1/2NS with 20 mEq KCL [D51/2NS with 20 mEq KCL] 1, Med 08/17/16 19:49 Active 000 ml IV 125 mls/hr Docusate Sodium [Colace] Med 08/17/16 21:00 Active 100 mg PO BID Hydromorphone HCl [Dilaudid] Med 08/17/16 19:49 Active 0.5 mg IV Q1H PRN Magnesium Hydroxide [Milk of Magnesia] Med 08/18/16 18:49 Active 30 ml PO DAILY PRN Multivitamins [One-A-Day] Med 08/18/16 09:00 Active 1 tab PO DAILY Ondansetron 4 mg/2ml Vial [Zofran] Med 08/17/16 19:49 Active 4 - 6 mg IV Q6H PRN Oxycodone HCl [Roxicodone] Med 08/17/16 19:49 Active 5 - 10 mg PO Q4H PRN Sodium Chloride 0.9% Flush [Normal Saline 10ml Flush] Med 08/17/16 19:49 Active 10 - 50 ml IV PRN PRN Tramadol HCl [Ultram] Med 08/18/16 02:00 Active 50 mg PO Q6H PRN Intake and Output 08/17/16 08/18/16 08/19/16 23:59 23:59 23:59 Intake Total 4450 2347 540 Output Total 1835 7015 400 Balance 2615 -728 140 General: Afebrile, No Acute Distress, No Mild Distress, No Moderate Distress, No Severe Distress, No Other Peripheral Pulses: Right Posterior Tibialis: 2+, Right Dorsalis Pedis: 2+ - Left Lower Extremity Incision: Dressing Clean/Dry/Intact Motor: Extensor Hallucis Longus: 3/5 (at baseline s/p CVA), Tibialis Anterior: 3 /5 (at baseline s/p CVA), Gastrocnemius: 3/5 (at baseline s/p CVA), Peroneals: 3 /5 (at baseline s/p CVA), Quadriceps: 4/5 (at baseline s/p CVA) Gross Sensation to Light Touch: Present: Deep Peroneal Nerve, Superficial Peroneal Nerve, Medial Plantar Nerve, Lateral Plantar Nerve, Sural Nerve, Saphenous Nerve Capillary Refill: < 3 Seconds - Problems (1) Hip fracture Qualifiers: Encounter type: initial encounter Fracture type: closed Laterality : right Qualifier Code: (S72.001A) Fracture of unspecified part of neck of right femur, initial encounter for closed fracture Status: AcuteAssessment/ Plan: 57yo F POD#1 s/p Right hip hemiarthoplasty - Continue PT today; WBAT; Maintain STRICT posterior hip precautions. - Maintain adequate analgesia; Tylenol, Tramadol, Oxycodone, IV Dilaudid for breakthrough pain. - D/C guerrero CHRISTIAN. - Encourage PO intake - Bowel care: Stool softners/laxatives to assist with BM. - VTE Ppx: ASA 325mg BID - Appreciate Hospitalist assistance with this patient. - Dispo: Will likely require SNF; Anticiapte today vs. tomorrow
[2016-08-19] MEDS: ASPIRIN (ENTERIC COATED) 325 MG TABLET.EC PO SCH (09:23)
[2016-08-19] MEDS: MAGNESIUM HYDROXIDE 30 ML UDCUP PO PRN (09:23)
[2016-08-19] MEDS: DOCUSATE SODIUM 100 MG CAPSULE PO SCH ×2 (09:23→21:14)
[2016-08-19] MEDS: MULTIVITAMINS 1 TAB TABLET PO SCH (09:24)
[2016-08-19] MEDS: ASCORBIC ACID 500 MG TABLET PO SCH ×2 (09:24→21:14)
[2016-08-19] MEDS: CEFTRIAXONE 1 GRAM DUPLEX 1 G in Premix (D5W) 50 ml 1 EACH IV SCH (11:17)
--- NOTE | 2016-08-19 11:54 | PDOC43 ---
- Subjective Chief Complaint: Hip fx CESAR used for translation. pt has R sided weakness and speaks softly, so this makes translation difficult. She ntoes she has pain in R hip. meds are helping. she would like to get up more. per PT she is doing well, following commands and seems to be doing well in her progress. able to walk a few steps. no new c/o Subjective: Reports Pain Tolerable, Reports Tolerating Diet Well, Reports Adequate Oral Intake, Reports Flatus, Reports Bowel Movement, Reports Urinating Without Difficulty, Denies Shortness of Breath, Denies Cough, Denies Chest Pain , Denies Abdominal Pain, Denies Nausea, Denies Vomiting, Denies Fever - Objective Vital Signs Temperature 98.4 F 08/19/16 08:25 Pulse Rate 85 08/19/16 08:25 Respiratory Rate 18 08/19/16 08:25 Blood Pressure 110/70 08/19/16 08:25 O2 Saturation by Pulse Oximetry 98 08/19/16 08:25 Oxygen Delivery Method Room Air Oxygen Flow Rate 0 Intake and Output 08/17/16 08/18/16 08/19/16 23:59 23:59 23:59 Intake Total 4450 2347 540 Output Total 1835 3075 400 Balance 2615 -728 140 General: Alert, Oriented x3, Cooperative, No Acute Distress HEENT: Atraumatic, Mucous membr. moist/pink Lungs: Clear to Auscultation Bilaterally, Normal Air Movement, No Diminished at Bases Cardiovascular: Regular Rate and Rhythm, Normal S1, Normal S2, No Murmur, No Gallops, No Rubs Abdomen: Soft, Normal Bowel Sounds, Non-Distended, No Tenderness Extremities: No Cyanosis, No Edema, No Tenderness Skin: Warm, Dry, Intact Neurological: Normal Speech, Other (R hemiparesis, stable at baseline) Psych/Mental Status: Normal Affect, Normal Mood Laboratory 08/19/16 05:32 08/19/16 05:32 08/19/16 05:32 RBC 3.37 L MCHC 32.0 L Estimated GFR 103 H Calcium 8.4 L Current Medications: Current meds reviewed in EMR. 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 Anticipate SNF 08/21 (2) Late effects of CVA (cerebrovascular accident) Status: ChronicAssessment/Plan: With R hemiparesis and dysarthria. Ambulates with walker as baseline. Affecting recovery. (3) HTN (hypertension) Qualifiers: Hypertension type: essential hypertension Qualifier Code: (I10) Essential (primary) hypertension Status: ChronicAssessment/Plan: BP on lower side, but improving significantly today. Resumed usual meds post-op , but with parameters. (4) Hyperlipidemia Qualifiers: Hyperlipidemia type: unspecified Qualifier Code: (E78.5) Hyperlipidemia , unspecified Status: ChronicAssessment/Plan: Stable. Need to clarify usual dose of fenofibrate. (5) UTI (urinary tract infection) Qualifiers: Urinary tract infection type: acute cystitis Hematuria presence: without hematuria Qualifier Code: (N30.00) Acute cystitis without hematuria Status: AcuteAssessment/Plan: working dx, on recophin. however UA looks dirty with many epis. C/S pending will DC abx if neg VTE Prophylaxis: Initiate post-op as per ortho, on ASA Disposition: anticipate SNF 08/21; appreciate therapy, nursing care.
[2016-08-19] MEDS: SODIUM CHLORIDE 0.9% 1,000 ML IV SCH (15:16)
[2016-08-20] MEDS: OXYCODONE HCL 5 MG TABLET PO PRN ×2 (03:05→09:22)
[2016-08-20] MEDS: ACETAMINOPHEN 500 MG TABLET PO SCH ×2 (03:05→09:17)
[2016-08-20] MEDS: D5 1/2NS with 20 mEq KCL 1,000 ML IV SCH ×2 (04:22→11:23)
[2016-08-20 07:19] VITALS: BP 121/88
[2016-08-20 07:20] LABS: HEMATOCRIT 29.5 % (37.0-47.0); HEMOGLOBIN 9.6 gm/l (12.0-16.0)
--- NOTE | 2016-08-20 07:24 | PDOC43 ---
- Subjective Chief Complaint: Hip fx pain well controlled with current meds. improving steadily. no new issues Subjective: Reports Pain Tolerable, Reports Tolerating Diet Well, Reports Adequate Oral Intake, Reports Flatus, Reports Bowel Movement, Reports Urinating Without Difficulty, Denies Shortness of Breath, Denies Cough, Denies Chest Pain , Denies Abdominal Pain, Denies Nausea, Denies Vomiting, Denies Fever, Denies Chills - Objective Vital Signs Temperature 97.9 F 08/20/16 07:18 Pulse Rate 84 08/20/16 07:18 Respiratory Rate 18 08/20/16 07:18 Blood Pressure 121/88 08/20/16 07:18 O2 Saturation by Pulse Oximetry 98 08/20/16 07:18 Oxygen Delivery Method Room Air Oxygen Flow Rate 0 Intake and Output 08/18/16 08/19/16 08/20/16 23:59 23:59 23:59 Intake Total 2347 1360 420 Output Total 3075 925 475 Balance -728 435 -55 General: Alert, Oriented x3, Cooperative, No Acute Distress HEENT: Atraumatic, Mucous membr. moist/pink Lungs: Clear to Auscultation Bilaterally, Normal Air Movement Cardiovascular: Regular Rate and Rhythm, Normal S1, Normal S2 Abdomen: Soft, Normal Bowel Sounds, Non-Distended, No Tenderness Extremities: Tenderness (over R hip), Normal Pulses, No Cyanosis, No Edema Skin: Warm, Dry, Intact Neurological: Other (R facial droop, chronic. stable) Psych/Mental Status: Normal Affect, Normal Mood Laboratory 08/19/16 05:32 Current Medications: Current meds reviewed in EMR. 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 Anticipate SNF 08/21 (2) Late effects of CVA (cerebrovascular accident) Status: ChronicAssessment/Plan: With R hemiparesis and dysarthria. Ambulates with walker as baseline. Affecting recovery. (3) HTN (hypertension) Qualifiers: Hypertension type: essential hypertension Qualifier Code: (I10) Essential (primary) hypertension Status: ChronicAssessment/Plan: BP rebounding nicely now. Already resumed usual meds post-op, but with parameters. (4) Hyperlipidemia Qualifiers: Hyperlipidemia type: unspecified Qualifier Code: (E78.5) Hyperlipidemia , unspecified Status: ChronicAssessment/Plan: Stable. (5) UTI (urinary tract infection) Qualifiers: Urinary tract infection type: acute cystitis Hematuria presence: without hematuria Qualifier Code: (N30.00) Acute cystitis without hematuria Status: AcuteAssessment/Plan: working dx, on recophin. however UA looks dirty with many epis. C/S pending will DC abx if neg VTE Prophylaxis: Initiate post-op as per ortho, on ASA Disposition: anticipate SNF 08/21; appreciate therapy, nursing care.
--- NOTE | 2016-08-20 07:32 | PDOC43 ---
- Subjective Findings: POD#3 s/p R hip edgar - Doing well; No acute events - Labs have been stable - Pain is well controlled - Has been working with PT; making good progress. - Babcock removed. Subjective: Reports Flatus - Objective Vital Signs Temperature 97.9 F 08/20/16 07:18 Pulse Rate 84 08/20/16 07:18 Respiratory Rate 18 08/20/16 07:18 Blood Pressure 121/88 08/20/16 07:18 O2 Saturation by Pulse Oximetry 98 08/20/16 07:18 Oxygen Delivery Method Room Air Oxygen Flow Rate 0 Laboratory 08/20/16 05:14 08/19/16 05:32 Active Medication Orders Category Date Time Status Acetaminophen [Tylenol] Med 08/17/16 22:00 Active 1,000 mg PO Q6H Ascorbic Acid [Vitamin C] Med 08/17/16 21:00 Active 500 mg PO BID Aspirin (Enteric Coated) [Ecotrin] Med 08/18/16 09:00 Active 325 mg PO DAILY Bisacodyl [Dulcolax] Med 08/20/16 18:49 Active 10 mg TX DAILY PRN Calcium Carbonate [Tums] Med 08/17/16 19:49 Active 1,000 - 2,000 mg PO Q2H PRN Ceftriaxone 1 Gram Duplex [Rocephin 1 Gram Premix] 1 g Med 08/18/16 11:00 Active Premix (D5W) 50 ml 1 each IV Q24H D5 1/2NS with 20 mEq KCL [D51/2NS with 20 mEq KCL] 1, Med 08/17/16 19:49 Active 000 ml IV 125 mls/hr Docusate Sodium [Colace] Med 08/17/16 21:00 Active 100 mg PO BID Hydromorphone HCl [Dilaudid] Med 08/17/16 19:49 Active 0.5 mg IV Q1H PRN Magnesium Hydroxide [Milk of Magnesia] Med 08/18/16 18:49 Active 30 ml PO DAILY PRN Multivitamins [One-A-Day] Med 08/18/16 09:00 Active 1 tab PO DAILY Ondansetron 4 mg/2ml Vial [Zofran] Med 08/17/16 19:49 Active 4 - 6 mg IV Q6H PRN Oxycodone HCl [Roxicodone] Med 08/17/16 19:49 Active 5 - 10 mg PO Q4H PRN Sodium Chloride 0.9% Flush [Normal Saline 10ml Flush] Med 08/17/16 19:49 Active 10 - 50 ml IV PRN PRN Sodium Chloride 0.9% Flush [Normal Saline 10ml Flush] Med 08/19/16 17:32 Active 10 ml IV Q8HR Tramadol HCl [Ultram] Med 08/18/16 02:00 Active 50 mg PO Q6H PRN Intake and Output 08/18/16 08/19/16 08/20/16 23:59 23:59 23:59 Intake Total 2347 1360 420 Output Total 3075 925 475 Balance -728 435 -55 Neurological: Alert, Oriented x 4 Peripheral Pulses: Right Dorsalis Pedis: 2+ - Right Lower Extremity Motor: Extensor Hallucis Longus: 3/5 (All at baseline s/p CVA), Tibialis Anterior: 3/5, Gastrocnemius: 3/5, Peroneals: 3/5, Quadriceps: 3/5 Gross Sensation to Light Touch: Present: Deep Peroneal Nerve, Superficial Peroneal Nerve, Medial Plantar Nerve, Lateral Plantar Nerve, Sural Nerve, Saphenous Nerve Capillary Refill: < 3 Seconds - Problems (1) Hip fracture Qualifiers: Encounter type: initial encounter Fracture type: closed Laterality : right Qualifier Code: (S72.001A) Fracture of unspecified part of neck of right femur, initial encounter for closed fracture Status: AcuteAssessment/ Plan: 57yo F POD#1 s/p Right hip hemiarthoplasty - Continue PT today; WBAT; Maintain STRICT posterior hip precautions. - Maintain adequate analgesia; Tylenol, Tramadol, Oxycodone - Encourage PO intake - Bowel care: Stool softners/laxatives to assist with BM. - VTE Ppx: ASA 325mg BID x 4wks - Appreciate Hospitalist assistance with this patient. - Dispo: D/C to SNF today. Orthopedic D/C instructions entered into Discharge Plan on EHR. Follow up with Akshat Benitez MD in 2wks for post-op follow up. Will need to call and schedule appointment.
[2016-08-20] MEDS: DOCUSATE SODIUM 100 MG CAPSULE PO SCH (09:16)
[2016-08-20] MEDS: ASCORBIC ACID 500 MG TABLET PO SCH (09:16)
[2016-08-20] MEDS: ASPIRIN (ENTERIC COATED) 325 MG TABLET.EC PO SCH (09:16)
[2016-08-20] MEDS: MULTIVITAMINS 1 TAB TABLET PO SCH (09:16)
[2016-08-20] MEDS: MAGNESIUM HYDROXIDE 30 ML UDCUP PO PRN (09:22)
[2016-08-20] MEDS ORDERED: SODIUM CHLORIDE 0.9% 100 ML IV ONE (11:14)
[2016-08-20] MEDS ORDERED: PUMP TUBING ONE (11:14)
[2016-08-20] MEDS: CEFTRIAXONE 1 GRAM DUPLEX 1 G in Premix (D5W) 50 ml 1 EACH IV SCH (11:23)
--- NOTE | 2016-08-20 13:18 | DS ---
CHAN ANDREW [id number] DATE OF ADMISSION: 08/16/2016 DATE OF DISCHARGE: 08/20/2016 DISCHARGE DIAGNOSES: 1. Right femoral neck fracture secondary to ground level fall. 2. 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 3. Hypertension. 4. Dyslipidemia. 5. Suspected urinary tract infection. CONSULTS: Orthopedic consult with Dr. Rocael Mckinney. PROCEDURES DONE: Include a brain CT showing no gross mass effect, depressed calvarial fracture, or acute intracranial hemorrhage. Evidence of remote multiple infarcts. Cervical spine CT showing no displaced cervical spine fracture, focal degeneration of left sided facet joints at C2-C3 and C3-C4. Femur x-ray had shown subcapital fracture of the right proximal femur with moderate varus angulation. Chest x-ray no acute cardiopulmonary process. REASON FOR ADMISSION: The patient is a 56-year-old [place] speaking female who lives at home with her two sons and [id number]. She had fallen about 5 days prior while walking at night and her family found her on the ground. She had not injured herself other than her hip and she initially refused to come to the hospital, so they had been carrying her around. She had been unable to ambulate. They brought her to the emergency room the evening of 08/16/2016, and work up showed a right femoral neck fracture, and was referred to the Hospitalist service with plans for orthopedic consult. Admission labs showed a white count of 10.9, hemoglobin 13.5, platelets 271. Chemistry profile sodium 133, potassium 4, BUN 15, creatinine 0.8, glucose 122, troponin less than 0.01. Urinalysis showed 2+ leukocyte esterase, 1 to 3 red cells, greater than 100 white cells and many epithelial cells with 3+ bacteria. Imaging was as above. HOSPITAL COURSE: The patient had right hemiarthroplasty preformed on the hip on 08/18/[address] Rocael Mckinney. The patient's recovery was unremarkable, and by 08/20/2016, she was felt to be stable to discharge to a halfway facility. She did receive Rocephin for suspected urinary tract infection, but her urine culture is still pending at the time of anticipated discharge. DISCHARGE MEDICATIONS: Are anticipated to be: 1. Aspirin 325 mg daily. 2. Dulcolax 10 mg by mouth daily as needed. 3. Cyclobenzaprine 10 mg by mouth three times a day as needed. 4. Docusate sodium 100 mg by mouth twice a day. 5. Lisinopril 10 mg by mouth daily. 6. Multivitamin 1 by mouth daily. 7. Oxycodone 5 to 10 mg by mouth every 4 hours as needed. 8. Senna 8.6 mg by mouth daily. 9. Bactrim DS 1 by mouth twice a day times 10 days. 10. Tramadol 50 mg by mouth every 6 hours as needed. DISCHARGE FOLLOW-UP: Will be with Dr. Benitez and Dr. Sergey Velasquez. Patient will be seeing daily physical therapy, and weight bear as tolerated in the right lower extremity. DISCHARGE DIET: Regular diet. ACTIVITY: As tolerated, but with strict posterior hip precautions. CONDITION ON DISCHARGE: Improved with good healing at the hip, but still some degree of right sided weakness after previous stroke. YAMILA/robbin cc: Dr. Sergey Benitez
[2016-08-20] MEDS ORDERED: BISACODYL 10 MG SUP PR PRN (18:49)
== END 2016-08-20 12:35 | DRG 470 ==
LOC: ED 19:48 → MS 22:18
PROVIDERS: ADMIT Family Medicine; ATTEND Family Medicine
PROC: 0SRR019 Replacement of Right Hip Joint, Femoral Surface with Metal Synthetic Substitute, Cemented, Open Approach (ICD-10-PCS; principal; 2016-08-17)
DX: S72.041A Displaced fracture of base of neck of right femur, initial encounter for closed fracture (principal); I69.351 Hemiplegia and hemiparesis following cerebral infarction affecting right dominant side; N39.0 Urinary tract infection, site not specified; W19.XXXA Unspecified fall, initial encounter; Y92.9 Unspecified place or not applicable; I10 Essential (primary) hypertension; E78.5 Hyperlipidemia, unspecified; R00.0 Tachycardia, unspecified